=== PATIENT | female | born 1940 | race Caucasian/White ===

== ENCOUNTER 2020-12-19 18:17 | Emergency (ER) | payer MEDICARE, BC ==
[~2020-12-19] VITALS: Ht 160 cm; Wt 54.5 kg
[2020-12-19 18:21] VITALS: BP 172/60
[2020-12-19] MEDS ORDERED: ONDA4TAB6 PO (18:50)
== END 2020-12-19 18:58 | disposition home or self-care (01) ==
LOC: ER 18:18
DX: B34.9 Viral infection, unspecified (principal); R50.9 Fever, unspecified; R11.0 Nausea; R00.2 Palpitations; Z79.899 Other long term (current) drug therapy
CPT/HCPCS: 99283